=== PATIENT | female | born 1940 | race Caucasian/White ===

== ENCOUNTER 2017-03-27 08:57 | Day surgery (SDC) | payer MEDICARE, OTHER ==
[~2017-03-27 08:57] MED LIST: ATEN25 PO; B12250T PO; CALCIUM + D OTC PO; CALTRA600D PO; COZ25 PO; FERROUS SULF325 M1 PO; FISH OIL OTC PO; FISH OIL1200 MG PO; HALF81 PO; MAG OXIDE250 MG PO; MAGNESIUM OTC PO; MAXIMUM D3 PO; MULTIVIT/MIN PO; PRILO PO; PRIN10 PO; VITAMIN B-12 OTC PO
[2017-03-27 09:40] LABS: HEMATOCRIT 33.5 % (36.0-48.0); HEMOGLOBIN 10.8 g/dL (12.0-16.0); MEAN CORPUS HGB CONC 32.2 g/dL (32.0-36.0); MEAN CORPUSCULAR HEMOGLOB 31.6 pg (26.0-34.0); MEAN PLATELET VOLUME 13.1 fL (9.2-13.0); RBC DISTRIBUTION WIDTH 14.5 % (12.0-16.0); RED CELL COUNT 3.42 10/6/uL (4.0-5.6); WHITE BLOOD CELLS 14.1 10/3/uL (4.5-10.5)
[2017-03-27 09:41] LABS: MANUAL DIFF YES %; PLATELET COUNT 52 10/3/uL (150-400); RETICULOCYTE COUNT 3.9 % (0.5-2.5); RETICULOCYTE COUNT ABSOLUTE 133.8 10/3/uL (20.2-119.8)
[2017-03-27 10:01] LABS: BAND NEUTROPHILS 7 %; EOSINOPHILS 1 %; EOSINOPHILS ABSOLUTE (CALC) 0.14 10/3/uL (0.0-0.53); IMMATURE GRANS ABSOLUTE (CALC) 1.69 10/3/uL (0.0-0.11); LYMPHOCYTES 37 %; LYMPHOCYTES ABSOLUTE (CALC) 5.22 10/3/uL (0.67-4.30); METAMYELOCYTES 6 %; MONOCYTES 10 %; MONOCYTES ABSOLUTE (CALC) 1.41 10/3/uL (0.21-1.20); MYELOCYTES 6 %; NEUTROPHILS ABSOLUTE (CALC) 5.64 10/3/uL (2.02-8.40); SEGMENTED NEUTROPHIL (0) 33 %; TOTAL NUCLEATED CELLS 100
[2017-03-27 10:02] LABS: PLATELET ESTIMATE DEC (ADEQUATE); RBC MORPHOLOGY NORM (NORMAL)
[2017-08-17] MEDS ORDERED: CALTRA600D PO (14:41)
[2017-08-17] MEDS ORDERED: ATEN25 PO (14:41)
[2017-08-17] MEDS ORDERED: MAXIMUM D3 PO (14:41)
[2017-08-17] MEDS ORDERED: B12250T PO (14:42)
[2017-08-17] MEDS ORDERED: MAG OXIDE250 MG PO (14:43)
[2017-08-17] MEDS ORDERED: MULTIVIT/MIN PO (14:43)
[2017-08-17] MEDS ORDERED: M-END DMX LIQU473 ML PO (14:44)
[2017-08-17] MEDS ORDERED: JAKAFI5 MG PO (14:44)
[2017-08-17] MEDS ORDERED: FISH OIL1200 MG PO (14:45)
[2017-08-17] MEDS ORDERED: ROCEPHIN IM (14:45)
[2017-08-17] MEDS ORDERED: ACET500CAP PO (14:46)
== END 2017-03-27 13:03 | disposition home or self-care (01) ==
LOC: SDC 08:57
PROVIDERS: Pathology Cytopathology
PROC: 07DR3ZX Extraction of Iliac Bone Marrow, Percutaneous Approach, Diagnostic (ICD-10-PCS; principal; 2017-03-27 11:00)
DX: D47.4 Osteomyelofibrosis (principal); D64.9 Anemia, unspecified; D69.6 Thrombocytopenia, unspecified; D72.829 Elevated white blood cell count, unspecified; I10 Essential (primary) hypertension; K21.9 Gastro-esophageal reflux disease without esophagitis; M19.90 Unspecified osteoarthritis, unspecified site; F32.9 Major depressive disorder, single episode, unspecified; E11.9 Type 2 diabetes mellitus without complications; Z88.5 Allergy status to narcotic agent; Z98.41 Cataract extraction status, right eye; Z98.42 Cataract extraction status, left eye; Z98.890 Other specified postprocedural states
CPT/HCPCS: 82962; 85025; 85045; 88305; 88311; 88313